=== PATIENT | male | born 1945 | race Caucasian/White ===

== ENCOUNTER → 2016-12-10 | Day surgery (SDC) | payer MEDICARE ==
[~2016-12-10] MED LIST: HYDR1TAB69 PO; IBUP200C92 PO; PIRO20CA PO; ULTRAM50 MG PO
== END | disposition home or self-care (01) ==
LOC: END 12:41
PROVIDERS: ATTEND Anesthesiology Pain Medicine
DX: M48.06 Spinal stenosis, lumbar region (principal); Z53.8 Procedure and treatment not carried out for other reasons